=== PATIENT | male | born 1960 | race African-American/Black ===

== ENCOUNTER 2017-03-16 16:27 | Emergency (ER) | payer MEDICAID ==
[~2017-03-16] VITALS: Ht 172.7 cm; Wt 79.0 kg
[~2017-03-16 16:27] MED LIST: AMLO10TA80 PO; ASPI-1159 PO; AZIT500T5 PO; BUDE6.9H IH; FOLIC ACID; GEMF600T PO; HYDROCHLOROTHIAZIDE; ISOS30TA6 PO; LISI10TA5 PO; METH4TAB17 PO; METO50TA5 PO; NIFE60TA64 PO; PENI500T PO; THIAMINE
[2017-03-16] MEDS ORDERED: IBUPROFEN 400MG TABLET PO ONE (19:00)
[2017-03-16 22:49] VITALS: BP 126/80
== END 2017-03-17 00:01 | disposition home or self-care (01) ==
LOC: ER 16:49
DX: M54.9 Dorsalgia, unspecified (principal); Z79.82 Long term (current) use of aspirin; I10 Essential (primary) hypertension; Z87.01 Personal history of pneumonia (recurrent); Z98.890 Other specified postprocedural states
CPT/HCPCS: 71010; 99283

== ENCOUNTER 2018-03-10 13:33 | Inpatient (IN) | payer MEDICAID ==
[~2018-03-10] VITALS: Ht 172.7 cm; Wt 65.4 kg
[~2018-03-10 13:33] MED LIST changes: +METO-539 PO; -METO50TA5 PO
[2018-03-10 15:25] LABS: BASOPHILS % 0.7 % (0.0-2.0); EOSINOPHILS % 4.8 % (0.0-5.0); HEMATOCRIT. 48.5 % (42.0-52.0); HEMOGLOBIN. 16.1 g/dL (14.0-18.0); LYMPHOCYTES % 24.1 % (20.0-50.0); MEAN CORPUSCULAR HEMOGLOBIN 28.7 pg (28.0-32.0); MEAN CORPUSCULAR VOLUME 86.4 fL (80.0-94.0); MEAN PLATELET VOLUME 9.3 fl (7.4-10.4); MONOCYTES % 8.9 % (2.0-8.0); NEUTROPHILS % 61.5 % (40.0-76.0); PLATELET 284 x1000/uL (130-400); RED BLOOD CELL COUNT 5.61 mill/uL (4.7-6.1)
[2018-03-10 15:32] LABS: CHLORIDE 106 mEq/L (98-107)
[2018-03-10 16:29] VITALS: BP 137/72
[2018-03-10] MEDS ORDERED: MORPHINE SULFATE 4 MG/ML CPJ (NOT FOR IM USE) IV PRN (17:30)
[2018-03-10] MEDS ORDERED: INFLUENZA VIRUS VACCINE(AFLURIA) 0.5ML SYR IM ONE (18:15)
[2018-03-10 20:00] VITALS: BP 128/79
[2018-03-10] MEDS ORDERED: METOPROLOL TARTRATE 25MG TABLET PO SCH (21:00)
[2018-03-10] MEDS: ATORVASTATIN CALCIUM 40MG TABLET PO SCH (21:33)
[2018-03-11] VITALS: BP 144/90
[2018-03-11 04:00] VITALS: BP 155/87
[2018-03-11 07:57] LABS: BASOPHILS % 0.7 % (0.0-2.0); HEMATOCRIT. 43.6 % (42.0-52.0); HEMOGLOBIN. 14.6 g/dL (14.0-18.0); LYMPHOCYTES % 30.6 % (20.0-50.0); MEAN CORPUSCULAR HEMOGLOBIN 28.9 pg (28.0-32.0); MONOCYTES % 12.4 % (2.0-8.0); NEUTROPHILS % 49.3 % (40.0-76.0); PLATELET 282 x1000/uL (130-400); RED BLOOD CELL COUNT 5.06 mill/uL (4.7-6.1)
[2018-03-11 08:00] VITALS: BP 173/94
[2018-03-11 08:11] LABS: CHLORIDE 105 mEq/L (98-107)
[2018-03-11 08:23] LABS: HDL CHOLESTEROL 80 mg/dL (40-59); LDL CHOLESTEROL 45 mg/dL (5-100)
[2018-03-11] MEDS: LISINOPRIL 10MG TABLET PO SCH (09:07)
[2018-03-11] MEDS: AMLODIPINE 10MG TABLET PO SCH (09:07)
[2018-03-11] MEDS: ASPIRIN 81MG TABLET PO SCH (09:07)
[2018-03-11] MEDS: CLOPIDOGREL 75MG TABLET PO SCH (09:07)
[2018-03-11] MEDS: ENOXAPARIN 40MG/0.4ML SYR SUBCUT SCH (09:08)
[2018-03-11] MEDS: ISOSORBIDE MONONITRATE 30MG TABLET SR 24HR PO SCH (09:08)
[2018-03-11 12:00] VITALS: BP 120/76
[2018-03-11] MEDS ORDERED: HYDRALAZINE 20MG/ML VIAL IV PRN (13:45)
[2018-03-11 16:00] VITALS: BP 127/80
[2018-03-11 20:00] VITALS: BP 146/83
[2018-03-11] MEDS: ATORVASTATIN CALCIUM 40MG TABLET PO SCH (21:12)
[2018-03-11 22:30] LABS: *AMPHETAMINES SCREEN URINE NEGATIVE (NEGATIVE); *BARBITURATES SCREEN URINE NEGATIVE (NEGATIVE); *BENZODIAZEPINES SCREEN URINE NEGATIVE (NEGATIVE)
[2018-03-11 22:31] LABS: *COCAINE SCREEN URINE PRESUMTIVE POSITIVE (NEGATIVE); CANNABINOID URINE SCREEN PRESUMTIVE POSITIVE (NEGATIVE); METHADONE URINE SCREEN NEGATIVE (NEGATIVE); OPIATES URINE SCREEN NEGATIVE (NEGATIVE); PHENCYCLIDINE URINE SCREEN NEGATIVE (NEGATIVE)
[2018-03-12] VITALS: BP 149/94
[2018-03-12 04:00] VITALS: BP 138/72
[2018-03-12 07:07] LABS: BASOPHILS % 0.8 % (0.0-2.0); EOSINOPHILS % 7.5 % (0.0-5.0); HEMATOCRIT. 42.6 % (42.0-52.0); HEMOGLOBIN. 14.1 g/dL (14.0-18.0); MEAN CORPUSCULAR HEMOGLOBIN 28.3 pg (28.0-32.0); MEAN CORPUSCULAR VOLUME 85.7 fL (80.0-94.0); MEAN PLATELET VOLUME 9.1 fl (7.4-10.4); MONOCYTES % 12.8 % (2.0-8.0); NEUTROPHILS % 39.9 % (40.0-76.0); PLATELET 281 x1000/uL (130-400); RED BLOOD CELL COUNT 4.97 mill/uL (4.7-6.1)
[2018-03-12 07:47] LABS: CHLORIDE 105 mEq/L (98-107)
[2018-03-12 08:00] VITALS: BP 142/84
[2018-03-12] MEDS: AMLODIPINE 10MG TABLET PO SCH (09:03)
[2018-03-12] MEDS: CLOPIDOGREL 75MG TABLET PO SCH (09:03)
[2018-03-12] MEDS: ASPIRIN 81MG TABLET PO SCH (09:03)
[2018-03-12] MEDS: ISOSORBIDE MONONITRATE 30MG TABLET SR 24HR PO SCH (09:03)
[2018-03-12] MEDS: ENOXAPARIN 40MG/0.4ML SYR SUBCUT SCH (09:04)
[2018-03-12] MEDS: LISINOPRIL 10MG TABLET PO SCH (09:04)
[2018-03-12 12:00] VITALS: BP 166/91
[2018-03-12 15:09] VITALS: BP 166/91
== END 2018-03-12 16:00 | disposition home or self-care (01) | DRG 816 ==
LOC: ER 13:33 → 5WST 15:01 → EDBEDREQTM 15:03 → EDBEDREQ 15:03 → ENRESERV 15:06
PROVIDERS: ADMIT Internal Medicine; ATTEND Internal Medicine
DX: T40.5X1A Poisoning by cocaine, accidental (unintentional), initial encounter (principal); I20.1 Angina pectoris with documented spasm; E78.5 Hyperlipidemia, unspecified; I49.3 Ventricular premature depolarization; F14.90 Cocaine use, unspecified, uncomplicated; F17.210 Nicotine dependence, cigarettes, uncomplicated; I49.1 Atrial premature depolarization; Z79.899 Other long term (current) drug therapy; Z95.5 Presence of coronary angioplasty implant and graft; Z79.82 Long term (current) use of aspirin; Z71.51 Drug abuse counseling and surveillance of drug abuser; Y92.89 Other specified places as the place of occurrence of the external cause; I12.9 Hypertensive chronic kidney disease with stage 1 through stage 4 chronic kidney disease, or unspecified chronic kidney disease; N18.2 Chronic kidney disease, stage 2 (mild)
CPT/HCPCS: 36415; 71045; 80048; 80061; 80305; 82962; 83880; 84484; 93005; 93306; 99285; J1650

== ENCOUNTER 2018-05-15 10:13 | Inpatient (IN) | payer MEDICAID ==
[~2018-05-15] VITALS: Ht 172.7 cm; Wt 72.6 kg
[~2018-05-15 10:13] MED LIST changes: -AZIT500T5 PO; -HYDROCHLOROTHIAZIDE; -METH4TAB17 PO; -PENI500T PO
[2018-05-15] MEDS ORDERED: SODIUM CHLORIDE 0.9% 1,000 ML IV ONE (10:40)
[2018-05-15] MEDS ORDERED: ASPIRIN 81MG TABLET PO ONE (10:45)
[2018-05-15 11:21] LABS: BASOPHILS % 1.3 % (0.0-2.0); EOSINOPHILS % 4.8 % (0.0-5.0); HEMATOCRIT. 47.5 % (42.0-52.0); HEMOGLOBIN. 15.6 g/dL (14.0-18.0); LYMPHOCYTES % 28.2 % (20.0-50.0); MEAN CORPUSCULAR HEMOGLOBIN 28.6 pg (28.0-32.0); MEAN CORPUSCULAR VOLUME 87.4 fL (80.0-94.0); MONOCYTES % 8.3 % (2.0-8.0); NEUTROPHILS % 57.4 % (40.0-76.0); PLATELET 287 x1000/uL (130-400); RED BLOOD CELL COUNT 5.44 mill/uL (4.7-6.1)
[2018-05-15 11:29] LABS: CHLORIDE 105 mEq/L (98-107)
[2018-05-15] MEDS ORDERED: AMLODIPINE 5MG TABLET PO ONE (11:30)
[2018-05-15 11:41] LABS: D-DIMER 0.45 mg/L FEU (<0.50); PARTIAL THROMBOPLASTIN TIME 28.3 sec (23.4-31.0); PROTHROMBIN TIME 9.7 sec (9.1-11.1)
[2018-05-15] MEDS ORDERED: LOSARTAN POTASSIUM 50 MG TABLET PO SCH (12:15)
[2018-05-15] MEDS ORDERED: ONDANSETRON HCL 4MG/2ML INJ IV PRN (12:15)
[2018-05-15] MEDS ORDERED: ACETAMINOPHEN 325MG TABLET PO PRN (12:15)
[2018-05-15 13:00] LABS: *AMPHETAMINES SCREEN URINE NEGATIVE (NEGATIVE); *BARBITURATES SCREEN URINE NEGATIVE (NEGATIVE); *BENZODIAZEPINES SCREEN URINE NEGATIVE (NEGATIVE); CANNABINOID URINE SCREEN PRESUMTIVE POSITIVE (NEGATIVE)
[2018-05-15 13:01] LABS: *COCAINE SCREEN URINE NEGATIVE (NEGATIVE); METHADONE URINE SCREEN NEGATIVE (NEGATIVE); OPIATES URINE SCREEN NEGATIVE (NEGATIVE); PHENCYCLIDINE URINE SCREEN NEGATIVE (NEGATIVE)
[2018-05-15] MEDS ORDERED: CLONIDINE 0.1MG TABLET PO PRN (16:00)
[2018-05-15] MEDS ORDERED: LORAZEPAM 2MG/ML CPJ IV ONE (16:15)
[2018-05-15 17:15] VITALS: BP 174/85
[2018-05-15] MEDS: LOSARTAN POTASSIUM 25 MG TABLET PO SCH (17:55)
[2018-05-15] MEDS: NITROGLYCERIN 0.4MG TABLET SL SL PRN (19:37)
[2018-05-15] MEDS: AMLODIPINE 5MG TABLET PO SCH (19:39)
[2018-05-15 19:55] VITALS: BP 198/96
[2018-05-16 00:09] VITALS: BP 145/77
[2018-05-16 04:00] VITALS: BP 146/83
[2018-05-16 06:21] LABS: BASOPHILS % 0.6 % (0.0-2.0); EOSINOPHILS % 5.2 % (0.0-5.0); HEMATOCRIT. 42.3 % (42.0-52.0); HEMOGLOBIN. 13.8 g/dL (14.0-18.0); LYMPHOCYTES % 22.2 % (20.0-50.0); MEAN CORPUSCULAR HEMOGLOBIN 28.2 pg (28.0-32.0); MEAN CORPUSCULAR VOLUME 86.7 fL (80.0-94.0); MEAN PLATELET VOLUME 8.7 fl (7.4-10.4); MONOCYTES % 7.9 % (2.0-8.0); NEUTROPHILS % 64.1 % (40.0-76.0); PLATELET 284 x1000/uL (130-400); RED BLOOD CELL COUNT 4.88 mill/uL (4.7-6.1)
[2018-05-16 06:35] LABS: CHLORIDE 107 mEq/L (98-107)
[2018-05-16 06:41] LABS: LDL CHOLESTEROL 64 mg/dL (5-100)
[2018-05-16 06:44] LABS: CREATINE KINASE 142 IU/L (39-308); HDL CHOLESTEROL 67 mg/dL (40-59)
[2018-05-16 06:46] LABS: CREATINE KINASE MB FRACTION 1.9 ng/mL (0.5-3.6)
[2018-05-16] MEDS: NITROGLYCERIN 0.4MG TABLET SL SL PRN (07:34)
[2018-05-16 08:00] VITALS: BP 159/95
[2018-05-16] MEDS: LOSARTAN POTASSIUM 25 MG TABLET PO SCH (08:52)
[2018-05-16] MEDS: AMLODIPINE 5MG TABLET PO SCH (08:52)
[2018-05-16] MEDS ORDERED: ASPIRIN 81MG TABLET PO SCH (09:00)
[2018-05-16 12:00] VITALS: BP 151/85
[2018-05-16] MEDS ORDERED: HEPARIN SODIUM 1,000 UNIT/1ML VIAL IV ONE (12:15)
== END 2018-05-16 15:52 | disposition left against medical advice (07) | DRG 203 ==
LOC: ER 10:13 → 7WST 11:57 → EDBEDREQ 11:59 → EDBEDREQTM 11:59 → ENRESERV 13:09
PROVIDERS: ADMIT Internal Medicine; ATTEND Internal Medicine
DX: M94.0 Chondrocostal junction syndrome [Tietze] (principal); E78.00 Pure hypercholesterolemia, unspecified; F12.90 Cannabis use, unspecified, uncomplicated; I10 Essential (primary) hypertension; E78.5 Hyperlipidemia, unspecified; F15.90 Other stimulant use, unspecified, uncomplicated; F17.200 Nicotine dependence, unspecified, uncomplicated; I25.10 Atherosclerotic heart disease of native coronary artery without angina pectoris; I25.2 Old myocardial infarction; Z53.21 Procedure and treatment not carried out due to patient leaving prior to being seen by health care provider
CPT/HCPCS: 36415; 71045; 80048; 80061; 80305; 82550; 82553; 83735; 83880; 84484; 85379; 93005; 93306; 93970; 96374; 99285; J2060; J7030

== ENCOUNTER 2018-07-28 06:39 | Inpatient (IN) | payer MEDICAID ==
[~2018-07-28] VITALS: Ht 172.7 cm; Wt 76.2 kg
[2018-07-28 07:58] LABS: BASOPHILS % 0.6 % (0.0-2.0); EOSINOPHILS % 3.4 % (0.0-5.0); HEMATOCRIT. 50.9 % (42.0-52.0); HEMOGLOBIN. 16.6 g/dL (14.0-18.0); LYMPHOCYTES % 20.4 % (20.0-50.0); MEAN CORPUSCULAR HEMOGLOBIN 27.9 pg (28.0-32.0); MEAN CORPUSCULAR VOLUME 85.3 fL (80.0-94.0); MEAN PLATELET VOLUME 8.2 fl (7.4-10.4); MONOCYTES % 6.7 % (2.0-8.0); NEUTROPHILS % 68.9 % (40.0-76.0); PLATELET 293 x1000/uL (130-400); RED BLOOD CELL COUNT 5.96 mill/uL (4.7-6.1); RED CELL DISTRIBUTION WIDTH 14.2 % (11.6-14.6)
[2018-07-28 08:04] LABS: CHLORIDE 106 mEq/L (98-107)
[2018-07-28] MEDS ORDERED: ASPIRIN 325MG EC TABLET PO ONE (08:30)
[2018-07-28] MEDS: NITROGLYCERIN 0.4MG TABLET SL SL PRN ×3 (08:49→13:53)
[2018-07-28] MEDS ORDERED: CLONIDINE 0.1MG TABLET PO PRN (11:30)
[2018-07-28] MEDS ORDERED: ONDANSETRON HCL 4MG/2ML INJ IV PRN (11:30)
[2018-07-28] MEDS: LOSARTAN POTASSIUM 50 MG TABLET PO SCH ×2 (18:54→21:48)
[2018-07-28 20:00] VITALS: BP 114/69
[2018-07-28] MEDS: KETOROLAC 30MG/ML VIAL IV PRN (20:13)
[2018-07-28 20:45] VITALS: BP_SYST 190; BP_SYST 200; BP_DIAS 88
[2018-07-28] MEDS ORDERED: POTASSIUM CHLORIDE 20MEQ TABLET SR PO NR (21:00)
[2018-07-28] MEDS: CLONIDINE 0.1MG TABLET PO SCH (21:48)
[2018-07-28] MEDS: ENOXAPARIN 40MG/0.4ML SYR SUBCUT SCH (21:48)
[2018-07-28] MEDS ORDERED: CYCL10TA7 PO (23:04)
[2018-07-28] MEDS ORDERED: ASPI-1158 PO (23:04)
[2018-07-28] MEDS ORDERED: AZIT250T12 PO (23:04)
[2018-07-28] MEDS ORDERED: HYDRALAZINE 20MG/ML VIAL IV PRN (23:30)
[2018-07-29] VITALS: BP 152/80
[2018-07-29] MEDS: ZOLPIDEM TARTRATE 5MG TABLET PO PRN ×2 (01:32→21:26)
[2018-07-29] MEDS: MORPHINE SULFATE 4 MG/ML CPJ (NOT FOR IM USE) IV PRN ×2 (01:32→06:44)
[2018-07-29 04:00] VITALS: BP_SYST 125; BP_SYST 153; BP_DIAS 76; BP_DIAS 91
[2018-07-29] MEDS: KETOROLAC 30MG/ML VIAL IV PRN (04:02)
[2018-07-29] MEDS: CLONIDINE 0.1MG TABLET PO SCH ×3 (06:34→21:26)
[2018-07-29 06:48] LABS: BASOPHILS % 0.4 % (0.0-2.0); EOSINOPHILS % 0.3 % (0.0-5.0); HEMATOCRIT. 49.1 % (42.0-52.0); HEMOGLOBIN. 15.9 g/dL (14.0-18.0); LYMPHOCYTES % 8.4 % (20.0-50.0); MEAN CORPUSCULAR HEMOGLOBIN 27.8 pg (28.0-32.0); MEAN CORPUSCULAR VOLUME 85.9 fL (80.0-94.0); MONOCYTES % 5.7 % (2.0-8.0); NEUTROPHILS % 85.2 % (40.0-76.0); PLATELET 259 x1000/uL (130-400); RED BLOOD CELL COUNT 5.72 mill/uL (4.7-6.1); RED CELL DISTRIBUTION WIDTH 14.1 % (11.6-14.6)
[2018-07-29 07:03] LABS: CHLORIDE 107 mEq/L (98-107)
[2018-07-29 07:36] LABS: CLARITY URINE CLEAR (CLEAR); COLOR URINE YELLOW (YELLOW); KETONES URINE NEGATIVE (NEGATIVE); LEUKOCYTE ESTERASE URINE NEGATIVE (NEGATIVE); NITRITE URINE NEGATIVE (NEGATIVE); OCCULT BLOOD URINE NEGATIVE (NEGATIVE); PH URINE 7.5 (4.5-8.0); PROTEIN URINE NEGATIVE (NEGATIVE); SPECIFIC GRAVITY URINE 1.015 (1.005-1.030); UROBILINOGEN URINE 0.2 E.U./dL (0.2-1.0)
[2018-07-29 07:57] VITALS: BP 133/77
[2018-07-29 07:57] LABS: *AMPHETAMINES SCREEN URINE NEGATIVE (NEGATIVE); *BARBITURATES SCREEN URINE NEGATIVE (NEGATIVE); *BENZODIAZEPINES SCREEN URINE NEGATIVE (NEGATIVE); *COCAINE SCREEN URINE NEGATIVE (NEGATIVE); METHADONE URINE SCREEN NEGATIVE (NEGATIVE); OPIATES URINE SCREEN PRESUMTIVE POSITIVE (NEGATIVE)
[2018-07-29 07:59] LABS: CANNABINOID URINE SCREEN PRESUMTIVE POSITIVE (NEGATIVE); PHENCYCLIDINE URINE SCREEN NEGATIVE (NEGATIVE)
[2018-07-29] MEDS: LOSARTAN POTASSIUM 50 MG TABLET PO SCH (08:07)
[2018-07-29] MEDS: NIFEDIPINE XL 60MG TAB PO SCH ×2 (08:07→21:25)
[2018-07-29] MEDS: ASPIRIN 81MG TABLET PO SCH (08:07)
[2018-07-29] MEDS ORDERED: POTASSIUM CHLORIDE 20MEQ TABLET SR PO SCH (09:45)
[2018-07-29] MEDS: NITROGLYCERIN OINT 1GM/INCH UDPKT TD SCH ×3 (10:32→21:27)
[2018-07-29 11:26] VITALS: BP 136/80
[2018-07-29 16:00] VITALS: BP 125/67
[2018-07-29 20:00] VITALS: BP 123/97
[2018-07-29] MEDS: LOSARTAN POTASSIUM 25 MG TABLET PO SCH (21:26)
[2018-07-29] MEDS: ATORVASTATIN CALCIUM 20MG TABLET PO SCH (21:26)
[2018-07-29] MEDS: ENOXAPARIN 40MG/0.4ML SYR SUBCUT SCH (21:27)
[2018-07-30] VITALS: BP 118/67
[2018-07-30 04:00] VITALS: BP 101/62
[2018-07-30] MEDS: CLONIDINE 0.1MG TABLET PO SCH ×3 (06:00→22:28)
[2018-07-30] MEDS: NITROGLYCERIN OINT 1GM/INCH UDPKT TD SCH ×3 (06:04→22:28)
[2018-07-30 06:32] LABS: BASOPHILS % 0.5 % (0.0-2.0); EOSINOPHILS % 3.7 % (0.0-5.0); HEMATOCRIT. 42.7 % (42.0-52.0); LYMPHOCYTES % 20.7 % (20.0-50.0); MEAN CORPUSCULAR HEMOGLOBIN 27.6 pg (28.0-32.0); MEAN CORPUSCULAR VOLUME 83.9 fL (80.0-94.0); MEAN PLATELET VOLUME 8.2 fl (7.4-10.4); NEUTROPHILS % 65.1 % (40.0-76.0); PLATELET 285 x1000/uL (130-400); RED BLOOD CELL COUNT 5.08 mill/uL (4.7-6.1); RED CELL DISTRIBUTION WIDTH 14.1 % (11.6-14.6)
[2018-07-30 06:54] LABS: CHLORIDE 108 mEq/L (98-107)
[2018-07-30 08:26] VITALS: BP 126/75
[2018-07-30] MEDS: ENOXAPARIN 60MG/0.6ML SYR SUBCUT SCH ×2 (10:01→21:09)
[2018-07-30] MEDS: ASPIRIN 81MG TABLET PO SCH (10:02)
[2018-07-30] MEDS: LOSARTAN POTASSIUM 25 MG TABLET PO SCH ×2 (10:02→21:06)
[2018-07-30] MEDS: NIFEDIPINE XL 60MG TAB PO SCH ×2 (10:02→21:07)
[2018-07-30 13:00] VITALS: BP 125/63
[2018-07-30] MEDS: METOPROLOL TARTRATE 25MG TABLET PO SCH ×2 (13:19→21:06)
[2018-07-30 18:15] VITALS: BP 120/83
[2018-07-30 20:00] VITALS: BP_SYST 112; BP_DIAS 64; BP_DIAS 69
[2018-07-30] MEDS: ATORVASTATIN CALCIUM 20MG TABLET PO SCH (21:06)
[2018-07-31] VITALS: BP_SYST 127; BP_SYST 128; BP_DIAS 66; BP_DIAS 68
[2018-07-31 04:00] VITALS: BP 124/79
[2018-07-31 05:48] LABS: BASOPHILS % 0.8 % (0.0-2.0); EOSINOPHILS % 5.8 % (0.0-5.0); HEMOGLOBIN. 14.1 g/dL (14.0-18.0); LYMPHOCYTES % 29.4 % (20.0-50.0); MEAN CORPUSCULAR HEMOGLOBIN 27.6 pg (28.0-32.0); MEAN CORPUSCULAR VOLUME 84.5 fL (80.0-94.0); MEAN PLATELET VOLUME 8.5 fl (7.4-10.4); MONOCYTES % 10.4 % (2.0-8.0); NEUTROPHILS % 53.6 % (40.0-76.0); PLATELET 283 x1000/uL (130-400); RED BLOOD CELL COUNT 5.09 mill/uL (4.7-6.1); RED CELL DISTRIBUTION WIDTH 14.2 % (11.6-14.6)
[2018-07-31] MEDS: CLONIDINE 0.1MG TABLET PO SCH ×3 (05:53→21:33)
[2018-07-31 05:57] LABS: CHLORIDE 107 mEq/L (98-107)
[2018-07-31] MEDS: NITROGLYCERIN OINT 1GM/INCH UDPKT TD SCH ×3 (06:01→21:32)
[2018-07-31] MEDS: ASPIRIN 81MG TABLET PO SCH (06:46)
[2018-07-31 08:00] VITALS: BP 116/68
[2018-07-31] MEDS: METOPROLOL TARTRATE 25MG TABLET PO SCH ×2 (08:09→21:33)
[2018-07-31] MEDS: LOSARTAN POTASSIUM 25 MG TABLET PO SCH ×2 (08:09→21:32)
[2018-07-31] MEDS: NIFEDIPINE XL 60MG TAB PO SCH ×2 (08:09→21:33)
[2018-07-31 12:00] VITALS: BP 137/76
[2018-07-31] MEDS: SODIUM CHLORIDE 0.45% 1,000 ML IV SCH (12:02)
[2018-07-31] MEDS ORDERED: HEPARIN SODIUM 1,000 UNIT/1ML VIAL IV ONE (13:26)
[2018-07-31] MEDS ORDERED: IOHEXOL-300 100 ML BOTTLE ONE (14:01)
[2018-07-31] MEDS ORDERED: LIDOCAINE HCL 1% 20ML VIAL (Pyxis) INJ ONE (14:01)
[2018-07-31] MEDS ORDERED: FENTANYL CITRATE/PF 50MCG/ML 2ML VIAL ONE (14:30)
[2018-07-31] MEDS ORDERED: MIDAZOLAM HCL 2 MG/2 ML VIAL ONE ×2 (14:30→15:07)
[2018-07-31] MEDS ORDERED: NITROGLYCERIN 50MCG/ML 10ML VIAL (CATH LAB) IV ONE (15:11)
[2018-07-31] MEDS ORDERED: NICARDIPINE 100MCG/ML 10ML VIAL (CATH LAB) IV ONE (15:11)
[2018-07-31] MEDS ORDERED: ACETAMINOPHEN 325MG TABLET PO PRN (15:30)
[2018-07-31] MEDS ORDERED: ONDANSETRON HCL 4MG/2ML INJ IV PRN (15:30)
[2018-07-31] MEDS ORDERED: ATROPINE SULFATE 1MG/10ML SYR IV PRN (15:30)
[2018-07-31 16:00] VITALS: BP 154/92
[2018-07-31 20:00] VITALS: BP 145/63
[2018-07-31] MEDS: ATORVASTATIN CALCIUM 20MG TABLET PO SCH (21:32)
[2018-07-31] MEDS: ZOLPIDEM TARTRATE 5MG TABLET PO PRN (23:30)
[2018-08-01] VITALS (10 sets, daily range): BP systolic 122–179; BP diastolic 69–107
[2018-08-01] MEDS: SODIUM CHLORIDE 0.45% 1,000 ML IV SCH ×2 (00:18→15:36)
[2018-08-01] MEDS: NITROGLYCERIN OINT 1GM/INCH UDPKT TD SCH ×2 (05:37→12:40)
[2018-08-01] MEDS: CLONIDINE 0.1MG TABLET PO SCH ×2 (05:37→13:09)
[2018-08-01 07:13] LABS: CHLORIDE 107 mEq/L (98-107)
[2018-08-01 07:30] LABS: BASOPHILS % 0.8 % (0.0-2.0); EOSINOPHILS % 5.2 % (0.0-5.0); HEMATOCRIT. 41.4 % (42.0-52.0); HEMOGLOBIN. 13.4 g/dL (14.0-18.0); LYMPHOCYTES % 26.4 % (20.0-50.0); MEAN CORPUSCULAR HEMOGLOBIN 27.4 pg (28.0-32.0); MEAN PLATELET VOLUME 8.7 fl (7.4-10.4); MONOCYTES % 9.1 % (2.0-8.0); NEUTROPHILS % 58.5 % (40.0-76.0); PLATELET 283 x1000/uL (130-400); RED BLOOD CELL COUNT 4.87 mill/uL (4.7-6.1); RED CELL DISTRIBUTION WIDTH 13.9 % (11.6-14.6)
[2018-08-01] MEDS: ASPIRIN 81MG TABLET PO SCH (08:49)
[2018-08-01] MEDS: LOSARTAN POTASSIUM 25 MG TABLET PO SCH (08:50)
[2018-08-01] MEDS: NIFEDIPINE XL 60MG TAB PO SCH (08:50)
[2018-08-01] MEDS: METOPROLOL TARTRATE 25MG TABLET PO SCH (08:50)
[2018-08-01] MEDS: KETOROLAC 30MG/ML VIAL IV PRN (13:00)
== END 2018-08-01 17:28 | disposition home or self-care (01) | DRG 190 ==
LOC: ER 06:39 → 8WST 08:56 → EDBEDREQ 08:58 → ENRESERV 19:55 → 3WST 07-31 15:41
PROVIDERS: ADMIT Internal Medicine; ATTEND Internal Medicine
PROC: 4A023N7 Measurement of Cardiac Sampling and Pressure, Left Heart, Percutaneous Approach (ICD-10-PCS; principal; 2018-07-31)
PROC: B2111ZZ Fluoroscopy of Multiple Coronary Arteries using Low Osmolar Contrast (ICD-10-PCS; 2018-07-31)
PROC: B2151ZZ Fluoroscopy of Left Heart using Low Osmolar Contrast (ICD-10-PCS; 2018-07-31)
DX: I21.4 Non-ST elevation (NSTEMI) myocardial infarction (principal); I42.9 Cardiomyopathy, unspecified; I11.0 Hypertensive heart disease with heart failure; I50.22 Chronic systolic (congestive) heart failure; I25.10 Atherosclerotic heart disease of native coronary artery without angina pectoris; E87.6 Hypokalemia; E78.5 Hyperlipidemia, unspecified; F12.90 Cannabis use, unspecified, uncomplicated; E78.00 Pure hypercholesterolemia, unspecified; F17.210 Nicotine dependence, cigarettes, uncomplicated; I35.1 Nonrheumatic aortic (valve) insufficiency; J44.9 Chronic obstructive pulmonary disease, unspecified; Z79.82 Long term (current) use of aspirin; Z79.899 Other long term (current) drug therapy; Z71.6 Tobacco abuse counseling
CPT/HCPCS: 36415; 71045; 78582; 80048; 80305; 83880; 84484; 93005; 93458; 96374; 99285; C1769; C1893; J0360; J1644; J1650; J1885; J2250; J2270; J2405; J3010; J3490; Q9967

== ENCOUNTER 2018-12-15 11:22 | Inpatient (IN) | payer MEDICAID ==
[~2018-12-15] VITALS: Ht 172.7 cm; Wt 83.0 kg
[~2018-12-15 11:22] MED LIST changes: -AMLO10TA80 PO; -ASPI-1159 PO; +ASPI-1393 PO; +CYCL10TA7 PO
[2018-12-15] MEDS ORDERED: ASPIRIN 325MG EC TABLET PO ONE (12:15)
[2018-12-15 13:05] LABS: CHLORIDE 106 mEq/L (98-107)
[2018-12-15 13:15] LABS: EOSINOPHILS % 5.2 % (0.0-5.0); HEMATOCRIT. 45.9 % (42.0-52.0); HEMOGLOBIN. 14.9 g/dL (14.0-18.0); LYMPHOCYTES % 27.6 % (20.0-50.0); MEAN CORPUSCULAR VOLUME 83.3 fL (80.0-94.0); MEAN PLATELET VOLUME 8.5 fl (7.4-10.4); MONOCYTES % 8.5 % (2.0-8.0); NEUTROPHILS % 57.7 % (40.0-76.0); PLATELET 277 x1000/uL (130-400); RED CELL DISTRIBUTION WIDTH 14.6 % (11.6-14.6)
[2018-12-15] MEDS ORDERED: NITROGLYCERIN 0.4MG TABLET SL SL ONE ×2 (13:23→13:30)
[2018-12-15] MEDS ORDERED: ENOXAPARIN 80MG/0.8ML SYR SUBCUT ONE (17:00)
[2018-12-15] MEDS ORDERED: IPRATROPIUM/ALBUTEROL 0.5-3(2.5)MG/3ML NEB HHN PRN ×2 (17:45→18:00)
[2018-12-15] MEDS ORDERED: MORPHINE SULFATE 2 MG/ML CPJ (NOT FOR IM USE) IV PRN (17:45)
[2018-12-15 17:50] VITALS: BP 202/100
[2018-12-15 18:00] VITALS: BP 202/100
[2018-12-15] MEDS ORDERED: CLONIDINE 0.1MG TABLET PO PRN (18:00)
[2018-12-15] MEDS: AMLODIPINE 10MG TABLET PO SCH (18:33)
[2018-12-15] MEDS: NITROGLYCERIN OINT 1GM/INCH UDPKT TD SCH ×3 (18:34→21:28)
[2018-12-15 18:50] VITALS: BP 175/86
[2018-12-15 20:00] VITALS: BP 154/80
[2018-12-15] MEDS ORDERED: POTASSIUM CHLORIDE 20MEQ TABLET SR PO NR (20:00)
[2018-12-15] MEDS: METOPROLOL TARTRATE 25MG TABLET PO SCH (21:25)
[2018-12-16] VITALS: BP 120/71
[2018-12-16 04:00] VITALS: BP 130/78
[2018-12-16] MEDS: NITROGLYCERIN OINT 1GM/INCH UDPKT TD SCH ×3 (05:55→21:17)
[2018-12-16 06:03] LABS: HEMATOCRIT. 39.7 % (42.0-52.0); HEMOGLOBIN. 13.3 g/dL (14.0-18.0); LYMPHOCYTES % 40.5 % (20.0-50.0); MEAN CORPUSCULAR HEMOGLOBIN 27.5 pg (28.0-32.0); MEAN CORPUSCULAR VOLUME 81.7 fL (80.0-94.0); MEAN PLATELET VOLUME 8.9 fl (7.4-10.4); MONOCYTES % 9.5 % (2.0-8.0); PLATELET 280 x1000/uL (130-400); RED BLOOD CELL COUNT 4.86 mill/uL (4.7-6.1); RED CELL DISTRIBUTION WIDTH 14.2 % (11.6-14.6)
[2018-12-16 06:26] LABS: CHLORIDE 105 mEq/L (98-107)
[2018-12-16] MEDS ORDERED: REGADENOSON 0.4 MG/5 ML IV ONE (06:30)
[2018-12-16 08:00] VITALS: BP 121/98
[2018-12-16] MEDS: ATORVASTATIN CALCIUM 10MG TABLET PO SCH (08:58)
[2018-12-16] MEDS: METOPROLOL TARTRATE 25MG TABLET PO SCH ×2 (08:58→21:16)
[2018-12-16] MEDS: AMLODIPINE 10MG TABLET PO SCH (08:58)
[2018-12-16] MEDS: ENOXAPARIN 40MG/0.4ML SYR SUBCUT SCH (08:58)
[2018-12-16] MEDS: ASPIRIN 81MG EC TABLET PO SCH (08:59)
[2018-12-16 12:00] VITALS: BP 140/75
[2018-12-16 15:08] LABS: *AMPHETAMINES SCREEN URINE NEGATIVE (NEGATIVE); *BARBITURATES SCREEN URINE NEGATIVE (NEGATIVE); *BENZODIAZEPINES SCREEN URINE NEGATIVE (NEGATIVE); *COCAINE SCREEN URINE NEGATIVE (NEGATIVE)
[2018-12-16 15:09] LABS: CANNABINOID URINE SCREEN PRESUMTIVE POSITIVE (NEGATIVE); METHADONE URINE SCREEN NEGATIVE (NEGATIVE); OPIATES URINE SCREEN NEGATIVE (NEGATIVE); PHENCYCLIDINE URINE SCREEN NEGATIVE (NEGATIVE)
[2018-12-16 16:00] VITALS: BP 148/86
[2018-12-17 01:40] VITALS: BP 132/67
[2018-12-17 03:20] VITALS: BP 135/73
[2018-12-17 04:00] VITALS: BP 150/86
[2018-12-17] MEDS: NITROGLYCERIN OINT 1GM/INCH UDPKT TD SCH (05:50)
[2018-12-17 07:07] LABS: BASOPHILS % 0.9 % (0.0-2.0); EOSINOPHILS % 8.9 % (0.0-5.0); HEMATOCRIT. 39.9 % (42.0-52.0); HEMOGLOBIN. 13.3 g/dL (14.0-18.0); LYMPHOCYTES % 40.7 % (20.0-50.0); MEAN CORPUSCULAR HEMOGLOBIN 27.2 pg (28.0-32.0); MEAN CORPUSCULAR VOLUME 81.7 fL (80.0-94.0); MEAN PLATELET VOLUME 8.6 fl (7.4-10.4); MONOCYTES % 11.5 % (2.0-8.0); PLATELET 263 x1000/uL (130-400); RED BLOOD CELL COUNT 4.89 mill/uL (4.7-6.1); RED CELL DISTRIBUTION WIDTH 14.6 % (11.6-14.6)
[2018-12-17 07:56] LABS: CHLORIDE 107 mEq/L (98-107)
[2018-12-17 08:00] VITALS: BP 142/86
[2018-12-17] MEDS ORDERED: REGADENOSON 0.4 MG/5 ML IV ONE (11:32)
[2018-12-17 12:56] VITALS: BP 140/80
[2018-12-17 13:00] VITALS: BP 139/82
[2018-12-17] MEDS: METOPROLOL TARTRATE 25MG TABLET PO SCH (13:18)
[2018-12-17] MEDS: ENOXAPARIN 40MG/0.4ML SYR SUBCUT SCH (13:19)
[2018-12-17] MEDS: ATORVASTATIN CALCIUM 10MG TABLET PO SCH (13:19)
[2018-12-17] MEDS: ASPIRIN 81MG EC TABLET PO SCH (13:19)
== END 2018-12-17 13:45 | disposition home or self-care (01) | DRG 198 ==
LOC: ER 11:24 → 8WST 16:54 → ENRESERV 17:02 → EDBEDREQTM 17:08
PROVIDERS: ADMIT Internal Medicine; ATTEND Internal Medicine
DX: I25.110 Atherosclerotic heart disease of native coronary artery with unstable angina pectoris (principal); I24.9 Acute ischemic heart disease, unspecified; I11.9 Hypertensive heart disease without heart failure; E78.00 Pure hypercholesterolemia, unspecified; E78.5 Hyperlipidemia, unspecified; E87.6 Hypokalemia; F17.210 Nicotine dependence, cigarettes, uncomplicated; F12.90 Cannabis use, unspecified, uncomplicated; J45.909 Unspecified asthma, uncomplicated; I25.2 Old myocardial infarction; Z82.49 Family history of ischemic heart disease and other diseases of the circulatory system; Z79.82 Long term (current) use of aspirin; Z95.5 Presence of coronary angioplasty implant and graft
CPT/HCPCS: 36415; 71045; 78452; 80048; 80305; 83735; 83880; 84484; 93005; 93017; 93306; 96374; 99285; A9500; J1650; J2785

== ENCOUNTER 2019-03-07 14:56 | Emergency (ER) | payer MEDICAID ==
[~2019-03-07] VITALS: Ht 185.4 cm; Wt 82.0 kg
[~2019-03-07 14:56] MED LIST changes: -FOLIC ACID; -NIFE60TA64 PO; -THIAMINE
[2019-03-07 16:18] LABS: BASOPHILS % 0.7 % (0.0-2.0); EOSINOPHILS % 3.8 % (0.0-5.0); HEMATOCRIT. 43.9 % (42.0-52.0); HEMOGLOBIN. 14.6 g/dL (14.0-18.0); LYMPHOCYTES % 21.7 % (20.0-50.0); MEAN CORPUSCULAR HEMOGLOBIN 27.3 pg (28.0-32.0); MEAN CORPUSCULAR VOLUME 82.1 fL (80.0-94.0); MEAN PLATELET VOLUME 8.3 fl (7.4-10.4); MONOCYTES % 8.1 % (2.0-8.0); NEUTROPHILS % 65.7 % (40.0-76.0); PLATELET 275 x1000/uL (130-400); RED BLOOD CELL COUNT 5.35 mill/uL (4.7-6.1)
[2019-03-07 16:20] LABS: CHLORIDE 108 mEq/L (98-107)
[2019-03-07 16:23] LABS: PARTIAL THROMBOPLASTIN TIME 29.6 sec (23.4-31.0)
[2019-03-07 16:24] LABS: ETHANOL BLOOD < 10 mg/dL
[2019-03-07 17:00] LABS: *AMPHETAMINES SCREEN URINE NEGATIVE (NEGATIVE); *BARBITURATES SCREEN URINE NEGATIVE (NEGATIVE); CANNABINOID URINE SCREEN NEGATIVE (NEGATIVE)
[2019-03-07 17:01] LABS: *BENZODIAZEPINES SCREEN URINE NEGATIVE (NEGATIVE); *COCAINE SCREEN URINE NEGATIVE (NEGATIVE); METHADONE URINE SCREEN NEGATIVE (NEGATIVE); OPIATES URINE SCREEN NEGATIVE (NEGATIVE); PHENCYCLIDINE URINE SCREEN NEGATIVE (NEGATIVE)
[2019-03-07 22:23] VITALS: BP 152/92
== END 2019-03-07 22:39 | disposition short-term general hospital (02) ==
LOC: ER 14:56
DX: R07.9 Chest pain, unspecified (principal); R06.02 Shortness of breath; J45.909 Unspecified asthma, uncomplicated; E78.00 Pure hypercholesterolemia, unspecified; I10 Essential (primary) hypertension; I25.2 Old myocardial infarction; Z79.82 Long term (current) use of aspirin
CPT/HCPCS: 36415; 71045; 80053; 80305; 80320; 83880; 84484; 85025; 85610; 85730; 93005; 99285; Z7610; G0480

== ENCOUNTER 2019-09-20 21:15 | Emergency (ER) | payer MEDICAID ==
[~2019-09-20] VITALS: Ht 177.8 cm; Wt 180.0 kg
[~2019-09-20 21:15] MED LIST changes: -ASPI-1393 PO; +ASPI-1497 PO
[2019-09-20] MEDS ORDERED: KETOROLAC 60MG/2ML VIAL IM STA (22:37)
[2019-09-20 23:26] VITALS: BP 158/90
[2019-09-21] MEDS ORDERED: AMOXICILLIN/POTASSIUM CLAVULANATE 875/125MG TAB PO SCH (00:34)
[2019-09-21] MEDS ORDERED: TETANUS, DIPHTHERIA, PERTUSSIS VAC/PF 0.5ML (>7YR OLD) IM ONE (00:45)
== END 2019-09-21 01:11 | disposition home or self-care (01) ==
LOC: ER 21:15
DX: S02.609A Fracture of mandible, unspecified, initial encounter for closed fracture (principal); I11.9 Hypertensive heart disease without heart failure; Y04.0XXA Assault by unarmed brawl or fight, initial encounter; Y93.89 Activity, other specified; Y92.488 Other paved roadways as the place of occurrence of the external cause
CPT/HCPCS: 70450; 70486; 90471; 90715; 96372; 99285; J1885

== ENCOUNTER 2021-01-26 17:17 | Emergency (ER) | payer MEDICAID ==
[~2021-01-26] VITALS: Ht 172.7 cm; Wt 89.0 kg
[~2021-01-26 17:17] MED LIST changes: -ISOS30TA6 PO; +ISOS30TA91 PO; +LISI10TA26 PO; -LISI10TA5 PO
[2021-01-26] MEDS ORDERED: NITROGLYCERIN 0.4MG TABLET SL SL PRN (17:45)
[2021-01-26] MEDS ORDERED: ASPIRIN 81MG TABLET PO ONE (17:45)
[2021-01-26 18:20] LABS: BASOPHILS % 0.6 % (0.0-2.0); EOSINOPHILS % 0.7 % (0.0-5.0); HEMATOCRIT. 47.3 % (42.0-52.0); HEMOGLOBIN. 15.6 g/dL (14.0-18.0); LYMPHOCYTES % 11.7 % (20.0-50.0); MEAN CORPUSCULAR HEMOGLOBIN 26.8 pg (28.0-32.0); MEAN CORPUSCULAR VOLUME 81.4 fL (80.0-94.0); MONOCYTES % 5.5 % (2.0-8.0); NEUTROPHILS % 81.5 % (40.0-76.0); PLATELET 299 x1000/uL (130-400); RED BLOOD CELL COUNT 5.82 mill/uL (4.7-6.1); RED CELL DISTRIBUTION WIDTH 15.2 % (11.6-14.6)
[2021-01-26 18:25] LABS: CHLORIDE 104 mEq/L (98-107)
[2021-01-26] MEDS ORDERED: NITR0.4T49 SL (19:05)
[2021-01-26 19:25] VITALS: BP 142/86
== END 2021-01-26 19:26 | disposition home or self-care (01) ==
LOC: ER 17:24 → CANBEDREQ 19:43
DX: R07.89 Other chest pain (principal); I10 Essential (primary) hypertension; E78.00 Pure hypercholesterolemia, unspecified; Z79.899 Other long term (current) drug therapy
CPT/HCPCS: 36415; 71045; 80053; 83880; 84484; 85025; 93005; 99285; Z7610

== ENCOUNTER 2023-01-30 13:03 | Emergency (ER) | payer MEDICAID ==
[~2023-01-30] VITALS: Ht 167.6 cm; Wt 82.0 kg
[~2023-01-30 13:03] MED LIST changes: +CYCL10TA21 PO; -CYCL10TA7 PO; +NITR0.4T49 SL
[2023-01-30 13:15] VITALS: O2SAT 98
[2023-01-30 14:00] VITALS: BP 140/86; PULSE 73; RESP 16
[2023-01-30] MEDS ORDERED: IBUPROFEN 600MG TABLET PO ONE (14:00)
[2023-01-30] MEDS ORDERED: IBUP-2029 MT (15:10)
== END 2023-01-30 16:22 | disposition home or self-care (01) ==
LOC: ER 13:03
DX: S83.411A Sprain of medial collateral ligament of right knee, initial encounter (principal); S93.401A Sprain of unspecified ligament of right ankle, initial encounter; I11.9 Hypertensive heart disease without heart failure; I49.9 Cardiac arrhythmia, unspecified; E78.00 Pure hypercholesterolemia, unspecified; Z98.890 Other specified postprocedural states; W18.39XA Other fall on same level, initial encounter; Y93.89 Activity, other specified; Y92.89 Other specified places as the place of occurrence of the external cause; Y99.8 Other external cause status
CPT/HCPCS: 73560; 73610; 99284

== ENCOUNTER 2023-06-20 15:15 | Emergency (ER) | payer MEDICAID ==
[~2023-06-20] VITALS: Ht 172.7 cm; Wt 83.9 kg
[~2023-06-20 15:15] MED LIST changes: +IBUP-2029 MT
[2023-06-20 15:23] VITALS: BP 145/89; PULSE 89; RESP 16; TEMP 98; O2SAT 96
[2023-06-20] MEDS: IBUPROFEN 600MG TABLET PO ONE (15:45)
[2023-06-20] MEDS ORDERED: CEPH500T MT (16:46)
== END 2023-06-20 17:08 | disposition home or self-care (01) ==
LOC: ER 15:15
DX: S89.91XA Unspecified injury of right lower leg, initial encounter (principal); I10 Essential (primary) hypertension; E78.00 Pure hypercholesterolemia, unspecified; Z98.890 Other specified postprocedural states; Z79.899 Other long term (current) drug therapy; V00.841A Fall from standing electric scooter, initial encounter; Y93.89 Activity, other specified; Y92.89 Other specified places as the place of occurrence of the external cause; Y99.8 Other external cause status
CPT/HCPCS: 73590; 93971; 99284

== ENCOUNTER 2023-07-24 16:52 | Emergency (ER) | payer MEDICAID ==
[~2023-07-24] VITALS: Ht 175.3 cm; Wt 90.0 kg
[~2023-07-24 16:52] MED LIST changes: +CEPH500T MT
[2023-07-24 17:06] VITALS: BP 140/74; PULSE 88; RESP 20; TEMP 98.4; O2SAT 95
[2023-07-24] MEDS ORDERED: SULF1TAB48 MT (19:27)
== END 2023-07-24 20:31 | disposition home or self-care (01) ==
LOC: ER 16:52
DX: L03.115 Cellulitis of right lower limb (principal); E78.00 Pure hypercholesterolemia, unspecified; I10 Essential (primary) hypertension; I49.9 Cardiac arrhythmia, unspecified; Z79.899 Other long term (current) drug therapy
CPT/HCPCS: 99281

== ENCOUNTER 2024-11-06 18:24 | Emergency (ER) | payer MEDICAID ==
[~2024-11-06] VITALS: Ht 172.7 cm; Wt 85.0 kg
[~2024-11-06 18:24] MED LIST changes: +SULF1TAB48 MT
[2024-11-06 18:26] VITALS: O2SAT 95
[2024-11-06] MEDS: KETOROLAC 15MG/ML VIAL IM ONE (20:35)
[2024-11-06] MEDS ORDERED: SULF1TAB48 MT (21:46)
[2024-11-06] MEDS ORDERED: CEPH500T MT (21:46)
[2024-11-06 22:05] VITALS: BP 162/94; PULSE 77; RESP 20; TEMP 36.8; O2SAT 96
== END 2024-11-06 22:12 | disposition home or self-care (01) ==
LOC: ER 18:24
DX: L08.9 Local infection of the skin and subcutaneous tissue, unspecified (principal); E78.00 Pure hypercholesterolemia, unspecified; I10 Essential (primary) hypertension; Z79.51 Long term (current) use of inhaled steroids; Z79.82 Long term (current) use of aspirin; Z79.899 Other long term (current) drug therapy
CPT/HCPCS: 93971; 96372; 99285; J1885; Z7610 ×2